=== PATIENT | male | born 1995 ===

== ENCOUNTER 2017-02-25 18:33 | Emergency (ER) | payer OTHER ==
[2017-02-25] MEDS ORDERED: Acetaminophen 500 MG TAB ONE ×2 (19:01)
[2017-02-25 19:11] LABS: #Eosinphils 0.2 thou/uL (0.0-0.7); #Lymphocytes 1.3 thou/uL (1.20-3.40); #Monocytes 0.8 thou/uL (0.11-0.59); #Neutrophils 7.3 thou/uL (1.40-6.50); %Basophils 0.5 % (0.0-1.0); %Lymphocytes 13.5 % (21.0-51.0); %Monocytes 8.6 % (0.0-10.0); %Neutrophils 75.5 % (42.0-75.0); Hemoglobin 16.3 g/dL (14.0-18.0); Mean Corpuscular HGB CONC 32.6 g/dL (32.0-36.0); Mean Corpuscular Hemoglobin 28.9 pg (27.0-31.0); Mean Corpuscular Volume 88.6 fl (80.0-94.0); Mean Platelet Volume 7.7 fL (7.4-10.4); Platelet Count 175 thou/uL (130-400); RBC Distribution Width 11.3 % (11.5-14.5); Red Blood Cell (RBC) Count 5.64 mill/uL (4.70-6.10); White Blood Cell (WBC) Count 9.6 thou/uL (4.8-10.8)
[2017-02-25 19:20] LABS: Fibrinogen 307 mg/dL (253-463)
[2017-02-25 19:22] LABS: INR-International Normal Ratio 1.2; PTT 32.6 SEC (22.9-36.1); Prothrombin Time 15.5 SEC (12.0-14.7)
[2017-02-25 19:26] LABS: ALT (SGPT) 27 U/L (0-55); AST (SGOT) 27 U/L (5-34); Alkaline Phosphatase 69 U/L (40-150); Anion Gap 22 mmol/L (10-20); BUN (Urea Nitrogen) 12 mg/dL (8.9-20.6); Bilirubin, Total 0.5 mg/dL (0.2-1.2); Calc. Creatinine Clearance 0 mL/min (70-130); Calcium 9.2 mg/dL (7.8-10.44); Carbon Dioxide 17 mmol/L (22-29); Chloride 106 mmol/L (98-107); Estimated GFR-MDRD Greater than 90; Globulin 3.7 g/dL (2.4-3.5); Glucose 66 mg/dL (70-105); Potassium 5.2 mmol/L (3.5-5.1); Protein, Total 7.7 g/dL (6.0-8.3); Sodium 140 mmol/L (136-145)
[2017-02-25 19:29] LABS: Bilirubin Negative (Negative); Blood, Urine Negative (Negative); Clarity Clear (Clear); Glucose, Urine (Dipstick) Negative (Negative); Leukocyte Negative (Negative); Nitrite Negative (Negative); Protein, Urine (Dipstick) Negative (Neg-Trace); Specific Gravity, Urine 1.025 (1.005-1.030); Urobilinogen 0.2 mg/dL (0.2-1.0)
[2017-02-25 19:30] LABS: D-Dimer Test Less than 0.27 *mcg/mL (0.27-0.43)
[2017-02-25 19:33] LABS: Platelet Count 175 thou/uL (130-400)
[2017-02-25] MEDS ORDERED: Ibuprofen 800 MG TAB ONE (20:02)
--- NOTE | 2017-02-25 20:07 | RAD ---
EXAM: ONE VIEW CHEST 02/25/17 HISTORY: Fever. COMPARISON: None. FINDINGS: Normal cardiac silhouette. The pulmonary vessels and hilum are normal. No mass. No consolidation. No pneumothorax or osseous abnormality. IMPRESSION: No acute cardiopulmonary process. POS: [facility]
[2017-02-25] MEDS ORDERED: Sodium Chloride 0.9% 1,000 ML ONE (20:22)
[2017-02-25] MEDS ORDERED: Sodium Chloride 0.45% 1,000 ML ONE (22:30)
[2017-02-26 16:42] LABS: FSP-Qualitative Normal (Normal)
== END 2017-02-26 01:20 | disposition short-term general hospital (02) ==
LOC: NAV ERS 18:33
DX: L03.115 Cellulitis of right lower limb (principal); R50.2 Drug induced fever; R00.0 Tachycardia, unspecified; Z79.2 Long term (current) use of antibiotics; Z79.899 Other long term (current) drug therapy
CPT/HCPCS: 71010; 80053; 81003; 83605; 85025; 85049; 85300; 85362; 85379; 85384; 85610; 85730; 87040; 87086; 96360; 96361; J7050